=== PATIENT | female | born 1970 | race African-American/Black ===

== ENCOUNTER 2016-12-05 20:19 | Emergency (ER) | payer OTHER ==
[2016-12-05] MEDS ORDERED: Ondansetron ODT 4 MG TAB ONE (21:26)
[2016-12-05] MEDS ORDERED: Ketorolac Tromethamine 30 MG/ML VIAL ONE (22:13)
[2016-12-05] MEDS ORDERED: Sodium Chloride 0.9% 1,000 ML ONE (22:13)
[2016-12-05] MEDS ORDERED: Acetaminophen 500 MG TAB ONE (22:13)
[2016-12-05 22:34] LABS: ALT (SGPT) 14 U/L (0-55); AST (SGOT) 15 U/L (5-34); Alkaline Phosphatase 68 U/L (40-150); Amylase 63 U/L (25-125); Anion Gap 14 mmol/L (10-20); BUN (Urea Nitrogen) 8 mg/dL (7.0-18.7); Bilirubin, Total 0.4 mg/dL (0.2-1.2); CK (CPK) 62 U/L (29-168); Calc. Creatinine Clearance 0 mL/min (70-130); Calcium 9.4 mg/dL (7.8-10.44); Carbon Dioxide 21 mmol/L (22-29); Chloride 107 mmol/L (98-107); Estimated GFR-MDRD Greater than 90; Globulin 4.1 g/dL (2.4-3.5); Lipase 6 U/L (8-78); Protein, Total 7.8 g/dL (6.0-8.3); Troponin I Less than 0.010 ng/mL (< 0.028)
[2016-12-05 22:41] LABS: Band 10 % (5-11); Mean Platelet Volume 7.1 fL (7.4-10.4); Neutrophil 40 % (42-75); Reactive Lymphocytes 1 % (0-10); Red Blood Cell (RBC) Count 4.25 mill/uL (4.20-5.40); White Blood Cell (WBC) Count 8.4 thou/uL (4.8-10.8)
== END 2016-12-05 23:20 | disposition home or self-care (01) ==
LOC: NAV ERS 20:19
DX: I10 Essential (primary) hypertension (principal); R10.13 Epigastric pain; F32.9 Major depressive disorder, single episode, unspecified
CPT/HCPCS: 80053; 82150; 82550; 82553; 83690; 83880; 84484; 85025; 85379; 93005; 96361; 96374; J1885; J7050; Q0162

== ENCOUNTER 2016-12-07 22:01 | Emergency (ER) | payer OTHER ==
[2016-12-07] MEDS ORDERED: predniSONE 20 MG TAB ONE ×2 (22:55→22:56)
[2016-12-07] MEDS ORDERED: predniSONE 10 MG TAB ONE (22:56)
== END 2016-12-07 23:03 | disposition home or self-care (01) ==
LOC: NAV ERS 22:01
DX: J04.0 Acute laryngitis (principal); I10 Essential (primary) hypertension; Z79.899 Other long term (current) drug therapy
CPT/HCPCS: 99284; J7506; J7512

== ENCOUNTER 2018-05-02 10:09 | Emergency (ER) | payer OTHER ==
[2018-05-02] MEDS ORDERED: Mag-Al Plus 1200 MG/1200 MG/120 MG/30 ML UDCUP ONE (10:45)
[2018-05-02 10:58] LABS: Bilirubin Negative (Negative); Blood, Urine Small (Negative); Clarity Clear (Clear); Glucose, Urine (Dipstick) Negative (Negative); Leukocyte Small (Negative); Nitrite Negative (Negative); Protein, Urine (Dipstick) Trace mg/dL (Neg-Trace); Urobilinogen 0.2 mg/dL (0.2-1.0)
[2018-05-02 11:38] LABS: CKMB 0.5 ng/mL (0-6.6); Troponin I Less than 0.010 ng/mL (< 0.028)
[2018-05-02 11:41] LABS: ALT (SGPT) 13 U/L (8-55); AST (SGOT) 15 U/L (5-34); Alkaline Phosphatase 92 U/L (40-150); Anion Gap 16 mmol/L (10-20); BUN (Urea Nitrogen) 11 mg/dL (7.0-18.7); Bilirubin, Total 0.3 mg/dL (0.2-1.2); CK (CPK) 67 U/L (29-168); Calc. Creatinine Clearance 0 mL/min (70-130); Calcium 9.7 mg/dL (7.8-10.44); Carbon Dioxide 21 mmol/L (22-29); Chloride 106 mmol/L (98-107); Estimated GFR-MDRD Greater than 90; Glucose 93 mg/dL (70-105); Lipase 10 U/L (8-78); Potassium 3.6 mmol/L (3.5-5.1); Sodium 139 mmol/L (136-145)
[2018-05-02 11:50] LABS: #Basophils 0.1 thou/uL (0.0-0.2); #Eosinphils 0.2 thou/uL (0.0-0.7); #Lymphocytes 2.8 thou/uL (1.20-3.40); #Monocytes 0.7 thou/uL (0.11-0.59); #Neutrophils 4.4 thou/uL (1.40-6.50); %Basophils 0.8 % (0.0-1.0); %Eosinophils 2.3 % (0.0-10.0); %Lymphocytes 34.5 % (21.0-51.0); %Monocytes 8.4 % (0.0-10.0); Hemoglobin 12.1 g/dL (12.0-16.0); Mean Corpuscular HGB CONC 29.4 g/dL (32.0-36.0); Mean Corpuscular Hemoglobin 25.7 pg (27.0-31.0); Mean Corpuscular Volume 87.5 fL (78.0-98.0); Mean Platelet Volume 6.7 fL (7.4-10.4); Platelet Count 309 thou/uL (130-400); RBC Distribution Width 14.2 % (11.5-14.5); Red Blood Cell (RBC) Count 4.71 mill/uL (4.20-5.40); White Blood Cell (WBC) Count 8.1 thou/uL (4.8-10.8)
[2018-05-02 12:01] LABS: Bacteria/HPF Rare-Few HPF (None Seen); Other Microscopic Description NO; Squamous Epithelial 0-3 HPF (0-3)
[2018-05-02 12:02] LABS: Pregnancy Test - Urine (BHCG) Negative (Negative)
[2018-05-02 12:03] LABS: Pregu Control Background? CLEAR/WHITE (CLR/WHITE); Pregu Control Bar Appear? YES (CONTROL BAR)
[2018-05-02] MEDS ORDERED: Ondansetron ODT 4 MG TAB ONE (12:07)
--- NOTE | 2018-05-02 13:22 | RAD ---
ACUTE ABDOMINAL SERIES: Date: 05/02/18 HISTORY: Epigastric abdominal pain. Two episodes of vomiting, as well as diarrhea. FINDINGS: CHEST: Comparison made with study on 05/05/15. Cardiac silhouette is stable in size and mildly enlarged. Pul monary vasculature is within normal limits. Lungs are clear. No free intraperitoneal gas is seen bene ath the hemidiaphragms. No interval change from prior study. 2 VIEWS ABDOMEN: There is a nonspecific bowel gas pattern. Phlebolith overlies the left hemipelvis. There are otherwis e no suspicious calcifications seen. The osseous structures are intact. IMPRESSION: 1. Nonspecific bowel gas pattern. 2. Mild cardiomegaly, stable from prior exam. POS: [facility]
== END 2018-05-02 13:03 | disposition home or self-care (01) ==
LOC: NAV ERS 10:09
DX: K29.00 Acute gastritis without bleeding (principal); I11.9 Hypertensive heart disease without heart failure; K04.7 Periapical abscess without sinus; K02.9 Dental caries, unspecified; R59.0 Localized enlarged lymph nodes
CPT/HCPCS: 74022; 80053; 81003; 81015; 81025; 82553; 83690; 84484; 85025; 93005; 96372; J2270; Q0162